=== PATIENT | female | born 1975 | race Two or more races ===

== ENCOUNTER → 2024-10-18 | Outpatient (CLI) | payer MEDICAID, SELFPAY ==
--- NOTE | 2024-10-18 08:51 | XR_ITS ---
Examination:Right hip AP, lateral, AP pelvis 3 views Technique: Hip AP lateral, AP pelvis, 3 views Exam date and time:October 18, 2024 0906 hrs. Indications: Right hip pain months Findings: Mild narrowing right and left hip joints Mild osteopenia No right hip fracture or dislocation Old area of bone density adjacent to the right iliac bone, measuring 25 mm Bones of the pelvis intact Impression: Mild narrowing right and left hip joints.
--- NOTE | 2024-10-18 08:51 | XR_ITS ---
Examination: Left knee 2 views Technique one AP lateral left knee 2 views Exam date and time: October 10, 2024 0915 hrs. Indications: Left knee pain beginning one year ago. Findings: Moderate osteoarthritis medial patellofemoral joints Moderate osteopenia No fracture Impression: Moderate osteoarthritis medial patellofemoral joints
--- NOTE | 2024-10-18 08:51 | XR_ITS ---
Examination: Lumbar spine 3 views Technique one AP lateral coned lateral lower lumbar spine 3 views Exam date and time: October 10, 2024 0916 hrs. Indications: Low back pain beginning one month ago. Findings: Adequate alignment lumbar vertebral bodies No lumbar fracture Diffuse moderate to advanced lumbar degenerative disc disease,, most prominent L4-L5 No spondylolisthesis Calcified bulging discs at the lower 4 lumbar levels Impression: Diffuse moderate to advanced lumbar degenerative disc disease Calcified bulging discs at the lower 4 lumbar levels
== END | disposition home or self-care (01) ==
LOC: CDIM 08:35
PROVIDERS: PCP Internal Medicine; Referring Provider Internal Medicine; Visit Provider Internal Medicine
DX: M25.852 Other specified joint disorders, left hip (principal); M25.851 Other specified joint disorders, right hip; M17.12 Unilateral primary osteoarthritis, left knee; M51.369 Other intervertebral disc degeneration, lumbar region without mention of lumbar back pain or lower extremity pain; M51.86 Other intervertebral disc disorders, lumbar region
CPT/HCPCS: 72100; 73502; 73560